=== PATIENT | female | born 1995 | race Caucasian/White ===

== ENCOUNTER 2021-06-27 00:15 | Emergency (ER) | payer OTHER ==
[~2021-06-27] VITALS: Ht 170.2 cm; Wt 120.2 kg
--- NOTE | 2021-06-27 03:07 | NUR ---
Patient discharged to home in stable condition. Written and verbal after care instructions given. Patient verbalizes understanding of instruction.
[2021-06-27 03:08] VITALS: BP 137/86
== END 2021-06-27 03:09 | disposition home or self-care (01) ==
LOC: ER 00:30
DX: H53.2 Diplopia (principal)
CPT/HCPCS: 70450-TC

== ENCOUNTER 2024-04-17 20:20 | Emergency (ER) | payer SELFPAY ==
[~2024-04-17] VITALS: Ht 165.1 cm; Wt 101.2 kg
[2024-04-17 20:29] VITALS: BP 110/62; TEMP 98.1
[2024-04-17 22:14] VITALS: O2SAT 100
== END 2024-04-17 22:14 | disposition home or self-care (01) ==
LOC: ER 20:23
DX: G43.909 Migraine, unspecified, not intractable, without status migrainosus (principal); G44.89 Other headache syndrome; R20.2 Paresthesia of skin